=== PATIENT | female | born 1955 | race Asian ===

== ENCOUNTER 2019-02-07 08:17 | Day surgery (SDC) | payer MEDICAID ==
[~2019-02-07] VITALS: Ht 154.9 cm; Wt 58.6 kg
[~2019-02-07 08:17] MED LIST: SODIUM CHLORIDE 0.9% 1,000 ML ONE
[2019-02-07] MEDS ORDERED: PROPOFOL 1% 20 ML VIAL IVP ONE (08:18)
[2019-02-07] MEDS ORDERED: SODIUM CHLORIDE 0.9% 1,000 ML IV ONE (08:30)
[2019-02-07] MEDS ORDERED: OXYGEN THERAPY IH SCH (10:30)
[2019-02-07] MEDS ORDERED: AMLO2.5T4 PO (11:00)
[2019-02-07] MEDS ORDERED: MULT10VI5 IV (11:00)
[2019-02-07] MEDS ORDERED: IRON18TA PO (11:00)
== END 2019-02-07 11:20 | disposition home or self-care (01) ==
LOC: SURGERY 08:17
PROVIDERS: ATTEND Specialist
DX: D50.9 Iron deficiency anemia, unspecified (principal); K64.8 Other hemorrhoids; I10 Essential (primary) hypertension; Z79.899 Other long term (current) drug therapy
CPT/HCPCS: 45398; J2704; J7030